=== PATIENT | male | born 1965 | race Caucasian/White ===

== ENCOUNTER → 2016-08-22 | Outpatient (CLI) | payer OTHER | END | disposition home or self-care (01) | LOC: GMAJ 10:14 | PROVIDERS: ATTEND Family Medicine | DX: Z12.5 Encounter for screening for malignant neoplasm of prostate (principal); E29.1 Testicular hypofunction ==

== ENCOUNTER 2016-10-20 09:06 | Emergency (ER) | payer OTHER ==
[2016-10-20 09:20] VITALS: BP 157/92; TEMP 97.4; O2SAT 94
[2016-10-20] MEDS ORDERED: LIDOCAINE 1% 10 ML VIAL INJ ONE (09:28)
[2016-10-20] MEDS ORDERED: SULFA/TRIMETH 800/160 (DS) TAB 1 EA TAB PO ONE (09:55)
--- NOTE | 2016-10-20 09:58 | ED.PDOC ---
History of Present Illness - General Chief Complaint: Skin/Abrasion/Tear Stated Complaint: ingrown toenail, left great toe Time Seen by Provider: 10/20/16 09:14 Source: patient Exam Limitations: no limitations - History of Present Illness Initial Comments: the patient is a 51-year-old male presenting secondary to an ingrown toenail to the first digit of his left foot. The medial aspect as well as ingrown. No significant pus drainage. There is significant erythema. Symptoms have been present for about a week. The patient does have onychomycosis of that nail. Timing/Duration: 1 week Severity: moderate Improving Factors: nothing Worsening Factors: nothing Associated Symptoms: denies symptoms Allergies/Adverse Reactions: Allergies NO KNOWN ALLERGY Allergy (Verified 10/20/16 09:20) Home Medications: Ambulatory Orders NK [NK] 10/20/16 Review of Systems - Review of Systems Constitutional: States: no symptoms reported EENTM: States: no symptoms reported Respiratory: States: no symptoms reported Cardiology: States: no symptoms reported Gastrointestinal/Abdominal: States: no symptoms reported Genitourinary: States: no symptoms reported Musculoskeletal: States: no symptoms reported Skin: States: see HPI Neurological: States: no symptoms reported All other Systems: No Change from Baseline Past Medical History (General) - Patient Medical History Hx Hypertension: No Hx Diabetes: No Surgical History: other - Vaccination History Hx Influenza Vaccination: No Hx Pneumococcal Vaccination: No - Social History Hx Tobacco Use: Yes Hx Alcohol Use: Yes - occasional - Activities of Daily Living Hospice Agency (if applicable):: None - Female History Patient is a Female of Child Bearing Age (10 -59 yrs old): No Patient : No Family Medical History - Family History Mother Family History: Unknown Physical Exam - Physical Exam General Appearance: Alert, Comfortable, No apparent distress Eye Exam: bilateral normal Ears, Nose, Throat: hearing grossly normal, normal pharynx Neck: full range of motion, supple Respiratory: no respiratory distress, no accessory muscle use Cardiovascular/Chest: normal peripheral pulses, no edema, other - regular rate Peripheral Pulses: dorsalis pedis,right: 2+, dorsalis pedis,left: 2+, posterior tibialis,right: 2+, posterior tibialis,left: 2+ Extremity: normal range of motion, no pedal edema, no calf tenderness, normal capillary refill, other - erythema surrounding the first toe left foot Significant tenderness to palpation of that area. Neurologic: instrument sterilizer II-XII nml as tested, alert, normal mood/affect, oriented x 3 Skin Exam: normal color - ith the exception of the erythema above. Comments: Vital Signs - 24 hr 10/20/16 09:15 Temperature 97.4 F L Pulse Rate [ 88 pulse ox] Respiratory 20 Rate Blood Pressure 157/92 [Right Arm] O2 Sat by Pulse 94 L Oximetry Progress - Progress Progress: 10/20/16 09:58 the patient is a 51-year-old male with ingrown toenail to the medial aspect of the first digit of the left foot. This appears to be due to onychomycosis. The patient will be written for [facility] for treatment. The patient underwent excision of the medial aspect of the nail. Antibiotic ointment and a Band-Aid can be applied for the next week or so while there is some drainage. The patient did receive 1 dose of Bactrim here. I'm not going to place him on additional antibiotics as I do not believe that there is a superimposed bacterial infection. ER warnings were given for any worsening. procedure ingrown nail removal: Risks and benefits were explained and patient agreed to proceed. Alcohol use for prep. Digital block performed with 8 cc of 1% lidocaine without epinephrine. Hemostats were used to lift the medial border of the nail. Scissors were used to trim down and out the medial third of the nail. A small amount of silver nitrate was used for hemostasis. The patient tolerated the procedure well. estimated blood loss less than 1 cc. Departure - Departure Clinical Impression: Ingrown left big toenail, Onychomycosis Disposition: Discharge to Home or Self Care Condition: Fair Departure Forms: ED Discharge - Pt. Copy, Patient Portal Self Enrollment Instructions: DI for Ingrown Toenail Removal, DI for Onychomycosis Diet: regular diet Activity: increase activity as tolerated Referrals: Juanpablo Beltran MD [Primary Care Provider] - 1-2 Weeks Home Medications: Ambulatory Orders NK [NK] 10/20/16 Additional Instructions: the patient is a 51-year-old male with ingrown toenail to the medial aspect of the first digit of the left foot. This appears to be due to onychomycosis. The patient will be written for [facility] for treatment. The patient underwent excision of the medial aspect of the nail. Antibiotic ointment and a Band-Aid can be applied for the next week or so while there is some drainage. The patient did receive 1 dose of Bactrim here. I'm not going to place him on additional antibiotics as I do not believe that there is a superimposed bacterial infection. ER warnings were given for any worsening.
[2016-10-20] MEDS ORDERED: NEOMYCIN-BACITRACIN-POLYMYXIN 0.9 GM UD TOP ONE (10:03)
== END 2016-10-20 10:09 | disposition home or self-care (01) ==
LOC: ER 09:06
DX: L60.0 Ingrowing nail (principal); L03.032 Cellulitis of left toe; Z87.891 Personal history of nicotine dependence

== ENCOUNTER 2016-10-25 05:50 | Day surgery (SDC) | payer OTHER ==
[2016-10-25] MEDS ORDERED: LACTATED RINGERS 1,000 ML ONE (06:11)
[2016-10-25] MEDS ORDERED: LIDOCAINE 1% 10 ML VIAL INJ ONE (07:36)
[2016-10-25] MEDS ORDERED: MIDAZOLAM INJ 5 MG/5 ML VIAL IV ONE (07:36)
[2016-10-25] MEDS ORDERED: PROPOFOL 200 MG/20 ML VIAL IV ONE (07:36)
[2016-10-25] MEDS ORDERED: fentaNYL CITRATE INJ 50 MCG/ML AMP IV ONE (07:37)
--- NOTE | 2016-10-25 08:20 | OP ---
DATE OF PROCEDURE: 10/25/16 PREOPERATIVE DIAGNOSIS: 1. Colon cancer screen. POSTOPERATIVE DIAGNOSIS: 1. Hyperplastic polyps in the rectum. PROCEDURE: 1. Colonoscopy with polypectomy, about four hyperplastic polyps in the rectum. SURGEON: Juanpablo Beltran MD. ANESTHESIA: MAC by Armando Avina CRNA. ESTIMATED BLOOD LOSS: Less than 2 mL. COMPLICATIONS: None apparent. TECHNIQUE: After informed consent was obtained from the patient, the patient was taken to the Endoscopy Suite and put in the left lateral decubitus position. After adequate IV sedation was obtained, a digital rectal exam was performed which revealed external hemorrhoidal tags, decreased sphincter tone, no intraluminal masses, and a smooth, 1+, anodular prostate. The colonoscope was then passed with good visualization all the way through the colon. The bowel prep was excellent. The cecum was identified by the presence of ileocecal valve and appendiceal orifice. The scope was then withdrawn slowly over the next 10 minutes and a good look at the entire colonic mucosa was obtained. A few hyperplastic polyps were found in the rectum. These were removed with cold biopsy forceps with good hemostasis following. The specimens were put into one labeled specimen container and sent to the pathologist. The scope was removed. The patient tolerated the procedure well. The patient was transported to the outpatient area in good condition. RECOMMENDATION: He will followup in one week for path report. #[id number] [facility]
[2016-10-25 09:57] VITALS: BP 153/89; TEMP 97.5; O2SAT 94
== END 2016-10-25 08:40 | disposition home or self-care (01) ==
LOC: AMB 05:50
PROVIDERS: ATTEND Family Medicine
DX: Z12.11 Encounter for screening for malignant neoplasm of colon (principal); D12.8 Benign neoplasm of rectum; E78.00 Pure hypercholesterolemia, unspecified; Z79.899 Other long term (current) drug therapy; E78.1 Pure hyperglyceridemia; M54.5 Low back pain; F17.210 Nicotine dependence, cigarettes, uncomplicated; F11.20 Opioid dependence, uncomplicated
CPT/HCPCS: 00810; 45380; J2250; J3010; J3490; J7120

== ENCOUNTER → 2018-01-09 | Outpatient (CLI) | payer OTHER | LOC: GMAJ 13:22 | PROVIDERS: ATTEND Family Medicine | DX: E29.1 Testicular hypofunction (principal); E78.1 Pure hyperglyceridemia ==

== ENCOUNTER → 2018-01-21 | Outpatient (CLI) | payer OTHER ==
--- NOTE | 2018-01-22 11:22 | MRI ---
EXAM DESCRIPTION: Lumbar Spine w/o Contrast : Magnetic Resonance Imaging. CLINICAL HISTORY: LOW BACK PAIN COMPARISON: LUMBAR TECHNIQUE: Multiplanar, multiple standard sequences, non contrast MRI, lumbar spine. FINDINGS: L5-S1: Posterior bilateral transpedicular screws with unilateral connecting rods. Anterior interspace fusion also present. Significant amount of metallic susceptibility artifact associated with the hardware. In the right side of the disc space, there is material measures 7 mm AP in either protruding from the disc space or abutting the posterior right disc space. This material is abutting the thecal sac and the descending right S1 nerve. Borderline right paracentral canal stenosis. Minimal narrowing of the bilateral foramina. No paravertebral soft tissue mass. L4-5: Interbody fusion device is visualized. Minimal disc space loss. Canal is patent. Bilateral foramina are patent. No flavum ligament hypertrophy. Bilateral facets are obscured by artifact. L3-4: Minimal disc space loss with desiccation. Anterior bulging and anterior Modic type II endplate reactive changes with small spurs. Posterior Modic type I endplate reactive changes and disc space loss. Left posterior 6 mm disc protrusion abutting the thecal sac extending slightly below the disc space partially effacing the left subarticular recess and abutting the descending left L4 nerve. Borderline left paracentral canal stenosis. Left intraforaminal disc osteophyte complex bulge and possible additional disc herniation resulting in left foraminal stenosis and compromise of the left L3 nerve. Bulging disc to the right with minimal narrowing of the right foramen. Minimal flavum ligament hypertrophy. Facets are negative. L2-3: Anterior disc bulge and anterior Modic type II endplate reactive changes. Posterior midline disc bulge or small protrusion 5 mm abutting the thecal sac. Mild to moderate canal narrowing. Minimal flavum ligament hypertrophy and bilateral foramina are patent. L1-2: Disc desiccation minimal anterior and posterior disc bulge, posterior midline 4 mm. Mild canal narrowing. Bilateral foramina are patent. T12-L1: Normal signal in the disc with disc space preserved. Conus terminates at this level. Posterior elements unremarkable. Canal and foramina are patent.. Anatomic curvature of the spine. Paravertebral soft tissues paraspinal muscle atrophy.. Normal marrow signal in the remaining vertebral bodies and the posterior elements. Some of the posterior elements at L4-L5 and S1 are obscured by metallic hardware artifact. Vertebral bodies are not compressed at any level. IMPRESSION: 1. Posterior and anterior L5-S1 fusion construct. No interbody fusion seen at L5-S1 which appears to contain disc material. Right paracentral protrusion of this material or right paracentral soft tissue posterior to the disc space which is extending below the disc space and abutting the right S1 nerve in the subarticular recess. Borderline right paracentral canal stenosis. Bilateral foramina are patent. No definite fluid collections around the hardware, evaluation limited due to metallic artifact. 2. Left posterior L3-4 disc protrusion abutting the thecal sac and partially effacing the left subarticular recess and abutting the left descending L4 nerve. Lateral protruding disc osteophyte complex resulting in left foraminal stenosis and compromise of the left L3 nerve. Spondylosis anterior, left lateral, and posterior, disc space. 3. Posterior midline disc bulge or focal protrusion of the L2-3 disc abutting the thecal sac. Anterior spondylosis. Electronically signed by: Jomar Jett MD 01/22/2018 11:21 AM CDT
== END ==
LOC: MRI 07:56
PROVIDERS: ATTEND Family Medicine
DX: M51.26 Other intervertebral disc displacement, lumbar region (principal); Z98.1 Arthrodesis status

== ENCOUNTER → 2019-04-21 | Outpatient (CLI) | payer OTHER ==
--- NOTE | 2019-04-22 12:11 | MRI ---
EXAM DESCRIPTION: Lumbar Spine w/o Contrast : Magnetic Resonance Imaging. CLINICAL HISTORY: CHRONIC PAIN SYNDROME LOW BACK PAIN COMPARISON: MRI scan lumbar spine without contrast January 2018. Radiographs lumbar spine with fusion hardware present December 2017. TECHNIQUE: Multiplanar, multiple standard sequences, non contrast MRI, lumbar spine. FINDINGS: L5-S1: The disc is best visualized on axial T2 series 501, image 3. Limited evaluation at the L5-S1 and L4-L5 levels due to degree of significant susceptibility artifact associated with hardware. Posterior transpedicular screws without connecting rods at L4-L5. Anterior disc space retainers at L4-L5 and L5-S1. No soft tissue complications with the hardware. Previous posterior decompression and partial laminectomy at L5-S1 with no canal stenosis. No definite interbody fusion device. Hyperintense T1 and T2 tissue protruding from the right paracentral disc space abutting the descending right S1 nerve above the lateral recess. Stable since the prior study. Narrowing but no stenosis of the foramina bilaterally. L4-L5: Magnetic susceptibility artifact related to fusion hardware as previously described. Question of a small interbody fusion device in the midline posterior disc space. Partial osseous fusion. No material protruding into the canal. Posterior decompression and partial bilateral laminectomy with no canal stenosis. Bilateral foramina are patent more on the right. No soft tissue complications around the hardware. L3-L4: Disc desiccation and minimal disc space loss. Anterior posterior fusion. Anterior and posterior moderate endplate reactive changes. Degenerative hypertrophy of the posterior elements: Facet joints and posterior flavum ligaments, with AP canal diameter 11 mm. Moderate right foraminal narrowing and borderline left foraminal stenosis is multifactorial. L2-L3: Disc desiccation and minimal disc space loss. Anterior posterior bulge. Anterior and posterior moderate endplate reactive changes. Posterior midline focal bulge or protrusion 4 mm abutting the thecal sac. Hypertrophic degenerative posterior elements. AP canal diameter 10 mm. Mild bilateral foraminal narrowing. L1-L2: Disc desiccation and minimal disc space loss posterior. Mild anterior endplate reactive changes. Trace retrolisthesis but no significant disc bulge. Mild degenerative hypertrophy of the posterior elements. AP canal diameter 13 mm. Bilateral foramina are patent. T12-L1: Minimal disc desiccation with disc space preserved. Posterior elements unremarkable. Canal and foramina are patent. Conus termination is below the disc space. No significant scoliosis. Upper lumbar kyphosis. Paravertebral soft tissues paraspinal muscle atrophy.. Distal cord normal signal and caliber. Normal marrow signal in the remaining vertebral bodies and the posterior elements. Vertebral bodies are not compressed at any level. IMPRESSION: 1. Technically difficult study due to moderate amount of magnetic susceptibility artifact associated with hardware at L4-L5 and S1. Also seen on the prior study. 2. No canal or foraminal stenosis at L4-5 or L5-S1. No hardware or software complications. 3. Moderate canal narrowing and borderline left foraminal stenosis multifactorial at L3-L4. Stable since the prior study. Disc bulge decreasing since the prior study. 4. Borderline mild central canal stenosis at L2-L3 with focal midline disc bulge or protrusion stable since the prior study. Electronically signed by: Jomar Jett MD 04/22/2019 12:09 PM [facility]
== END ==
LOC: MRI 07:59
PROVIDERS: ATTEND Anesthesiology
DX: M96.1 Postlaminectomy syndrome, not elsewhere classified (principal); M54.17 Radiculopathy, lumbosacral region; M43.27 Fusion of spine, lumbosacral region; M51.36 Other intervertebral disc degeneration, lumbar region; M48.061 Spinal stenosis, lumbar region without neurogenic claudication; M51.86 Other intervertebral disc disorders, lumbar region; M47.892 Other spondylosis, cervical region; G89.4 Chronic pain syndrome; Z68.29 Body mass index [BMI] 29.0-29.9, adult

== ENCOUNTER → 2019-12-06 | Outpatient (CLI) | payer OTHER ==
--- NOTE | 2019-12-06 15:05 | RAD ---
EXAM DESCRIPTION: Shoulder x-ray, Left 4 Views CLINICAL HISTORY: SHOULDER PAIN COMPARISON: None Available. TECHNIQUE: Four x-ray views of the left shoulder. FINDINGS: There is adequate internal and external rotation. Normal glenohumeral alignment on transcatheter Y view and transaxillary view There is no fracture or dislocation. There are no significant degenerative changes observed. AC joint appears intact. No focal bone lesion. Degenerative changes in lower C-spine. IMPRESSION: Negative for fracture or dislocation. Electronically signed by: Michel Camacho MD 12/06/2019 3:03 PM CDT
== END | disposition home or self-care (01) ==
LOC: RAD 09:34
PROVIDERS: ATTEND Orthopaedic Surgery
DX: M25.512 Pain in left shoulder (principal)

== ENCOUNTER → 2020-03-24 | Outpatient (CLI) | payer OTHER ==
--- NOTE | 2020-03-25 18:22 | MRI ---
Study: MRI of the Left Shoulder. Indication: PAIN IN LEFT SHOULDER Technique: Multiplanar, multi sequence MRI of the left shoulder was obtained without intravenous contrast. Comparison: None. Findings: Moderate to severe AC joint osteoarthritis. Type I acromion with mild lateral downsloping. Supraspinatus and infraspinatus tendinosis with high grade articular tearing throughout the supraspinatus tendon insertion and anterior margin infraspinatus tendon insertion which approaches full-thickness. The involved area extends over an AP length of 35 mm. Torn articular fibers retracted to the midline humeral head. Subscapularis tendinosis. Moderate atrophy and grade 3 fatty infiltration teres minor muscle belly with mild atrophy and grade 1 fatty infiltration remaining rotator cuff musculature. No lesion identified at the quadrilateral space. Long head biceps tendinosis and longitudinal fissuring. Circumferential labral tearing and truncation. Mild glenohumeral joint osteoarthritis with a tiny joint effusion. No acute fracture. Impression: Supraspinatus and infraspinatus tendinosis with high-grade articular tearing throughout the supraspinatus tendon and anterior margin infraspinatus tendon. Subscapularis tendinosis. Atrophy and fatty infiltration rotator cuff musculature above. Long head biceps tendinosis and longitudinal fissuring. Mild glenohumeral joint osteoarthritis with a tiny joint effusion. Circumferential labral tearing and truncation Moderate to severe AC joint osteoarthritis. Electronically signed by: Jorden Ackerman MD 03/25/2020 6:20 PM [facility]
== END ==
LOC: MRI 08:56
PROVIDERS: ATTEND Orthopaedic Surgery
DX: M75.102 Unspecified rotator cuff tear or rupture of left shoulder, not specified as traumatic (principal); S43.432A Superior glenoid labrum lesion of left shoulder, initial encounter; M75.82 Other shoulder lesions, left shoulder; M62.512 Muscle wasting and atrophy, not elsewhere classified, left shoulder; M75.22 Bicipital tendinitis, left shoulder; M19.012 Primary osteoarthritis, left shoulder; M25.412 Effusion, left shoulder

== ENCOUNTER → 2020-03-30 | Outpatient (CLI) | payer OTHER | LOC: GMAJ 10:27 | PROVIDERS: ATTEND Family Medicine | DX: E29.1 Testicular hypofunction (principal); I10 Essential (primary) hypertension; E78.1 Pure hyperglyceridemia ==